=== PATIENT | female | born 1990 | race Caucasian/White ===

== ENCOUNTER 2018-12-06 17:40 | Emergency (ER) | payer MEDICAID ==
--- NOTE | 2018-12-06 18:31 | CT ---
Head CT Technique: Multiple axial sections through the brain were obtained. Intravenous contrast was not utilized. Artifact is noted from jewelry within the right ear. Findings: Ventricles along with basal cisterns and sulci over the convexities appear within normal limits. No abnormal parenchymal densities are identified. No evidence of intracranial hemorrhage. No midline shift or mass effect is seen. Bone window settings were reviewed which shows soft tissue injury and soft tissue air within the right parietal scalp. No acute calvarial abnormality is identified. Mild mucosal thickening and minimal fluid is seen within the sphenoid sinus. Minimal mucosal thickening is noted within the ethmoid sinuses. Impression: 1. Scalp injury as described above. 2. No acute intracranial abnormality or skull fracture is seen. Study is slightly limited due to jewelry within the right ear causing artifact. 3. Mild sinus findings which are most likely incidental. Diagnostic code #3
[2018-12-06] MEDS ORDERED: Ondansetron 4 MG/2 ML SDV ONE (19:02)
[2018-12-06] MEDS ORDERED: Ondansetron 4 MG/2 ML SDV IVPUSH ONE (19:06)
--- NOTE | 2018-12-06 19:16 | EDM.PDOC ---
ED HPI GENERAL MEDICAL PROBLEM - General Chief Complaint: Trauma Stated Complaint: [facility] Time Seen by Provider: 12/06/18 17:40 - History of Present Illness INITIAL COMMENTS - FREE TEXT/NARRATIVE: 28-year-old female brought in by EMS after a horse accident. Patient has no underlying past medical history. She is 15 weeks . be has been uncomplicated thus far. Patient was riding a horse. The horse was run into by a cow causing the horse to slip and fall on the ice along with the patient landed on her right side. She did strike her head and was immediately knocked out shortly after this she had some seizure-like activity where her eyes rolled back and she had involuntary movements of her upper extremities and to a lesser extent her right lower extremity this lasted several minutes the patient did not regain consciousness for 7 or more minutes. This was witnessed and described in detail by the patient's . Upon arrival to the emergency room the patient is alert and oriented and conversing well. She's able to provide an adequate history she has no memory of the time where she was knocked out. She denies any pain other than her head she is not having any cramping or contractions she has not noticed any movement yet with the . She denies any neck pain no chest pain no back pain no abdominal or pelvic discomfort she has not noticed any vaginal bleeding or discharge she has not had a tetanus shot in quite some time probably before high school. She is on no routine medications other than her vitamins. 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: - Past Surgical History Musculoskeletal Surgical History: Reports: Other (See Below) Other Musculoskeletal Surgeries/Procedures:: tib fib fracture of left leg Social & Family History - Tobacco Use Smoking Status *Q: Never Smoker Second Hand Smoke Exposure: No - Caffeine Use Caffeine Use: Reports: Coffee - Recreational Drug Use Recreational Drug Use: No Review of Systems - Review of Systems Review Of Systems: See Below Constitutional: Reports: No Symptoms Eyes: Reports: No Symptoms Ears: Reports: No Symptoms Nose: Reports: No Symptoms Mouth/Throat: Reports: No Symptoms Respiratory: Reports: No Symptoms Cardiovascular: Reports: No Symptoms GI/Abdominal: Reports: No Symptoms Genitourinary: Reports: No Symptoms. Denies: Vaginal Bleeding Musculoskeletal: Reports: Other (Right lower thigh pain) Skin: Reports: No Symptoms Neurological: Reports: Seizure, Other (See history of present illness) Psychiatric: Reports: No Symptoms ED EXAM, GENERAL - Physical Exam Exam: See Below Free Text/Narrative:: Patient was alert and oriented with she arrived to the emergency room she was well conversive. Patient came in with a c-collar on a denied neck pain she was not on a backboard. The patient was able to sit up without difficulty her back was examined no bony discomfort no soft tissue discomfort. Palpation in and around the c-collar revealed no discomfort the c-collar was removed. The patient demonstrated good motion of her neck with full extension flexion and turning to the right and left without causing discomfort the c-collar was left off. Exam Limited By: No Limitations General Appearance: Alert, No Apparent Distress Eye Exam: Bilateral Eye: EOMI, Normal Inspection, PERRL Ears: Normal External Exam, Normal Canal, Hearing Grossly Normal, Normal TMs Nose: Normal Inspection, Normal Mucosa, No Blood Throat/Mouth: Normal Inspection, Normal Lips, Normal Teeth, Normal Gums, Normal Oropharynx, Normal Voice, No Airway Compromise Head: Other (He has a laceration right occipital area proximally 5 cm) Neck: Normal Inspection, Supple, Non-Tender, Full Range of Motion. No: Lymphadenopathy (L), Lymphadenopathy (R) Respiratory/Chest: No Respiratory Distress, Lungs Clear, Normal Breath Sounds Cardiovascular: Regular Rate, Rhythm, No Edema, No Murmur GI/Abdominal: Normal Bowel Sounds, Soft, Non-Tender (Female) Exam: Normal External Exam, Other (Normal external a bimanual examination no evidence of any vaginal bleeding heart tones were audible with 160 bpm this was done with Doppler). No: Vaginal Bleeding Back Exam: Normal Inspection, Full Range of Motion. No: CVA Tenderness (L), CVA Tenderness (R) Extremities: Other (Normal extremity evaluation other than she is developing contusion and ecchymosis over the anterior right thigh distal aspect she was able to ambulate on this with minimal discomfort) Neurological: Alert, Oriented, CN II-XII Intact, Normal Cognition, Normal Gait, Normal Reflexes, No Motor/Sensory Deficits Psychiatric: Normal Affect, Normal Mood Skin Exam: Warm, Dry, Intact Lymphatic: No Adenopathy Course - Vital Signs Last Recorded V/S: Last Vital Signs Temp 36.9 C 12/06/18 17:47 Pulse 60 12/06/18 17:47 Resp 12 12/06/18 17:47 BP 116/72 12/06/18 17:47 Pulse Ox 100 12/06/18 17:47 - Orders/Labs/Meds Orders: Active Orders 24 hr Category Date Time Status Vaccines to be Administered [RC] PER UNIT ROUTINE Care 12/06/18 19:40 Active Labs: Laboratory Tests 12/06/18 12/06/18 12/06/18 Range/Units 17:45 17:45 17:45 WBC 13.15 H (3.98-10.04) K/mm3 RBC 3.78 L (3.98-5.22) M/mm3 Hgb 12.1 (11.2-15.7) gm/L Hct 35.4 (34.1-44.9) % MCV 93.7 (79.4-94.8) fl MCH 32.0 (25.6-32.2) pg MCHC 34.2 (32.2-35.5) g/dl RDW Std Deviation 43.1 (36.4-46.3) fL Plt Count 232 (182-369) K/mm3 MPV 9.1 L (9.4-12.3) fl Neutrophils % (Manual) 88 H (40-60) % Band Neutrophils % 0 (0-10) % Lymphocytes % (Manual) 8 L (20-40) % Atypical Lymphs % 0 % Monocytes % (Manual) 3 (2-10) % Eosinophils % (Manual) 1 (0.7-5.8) % Basophils % (Manual) 0 L (0.1-1.2) Toxic Granulation Few Platelet Estimate Adequate RBC Morph Comment Normal Sodium 136 (136-145) mEq/L Potassium 3.9 (3.5-5.1) mEq/L Chloride 102 (98-107) mEq/L Carbon Dioxide 24 (21-32) mEq/L Anion Gap 13.9 (5-15) BUN 10 (7-18) mg/dL Creatinine 0.7 (0.55-1.02) mg/dL Est Cr Clr Drug Dosing 121.78 mL/min Estimated GFR (MDRD) > 60 (>60) mL/min BUN/Creatinine Ratio 14.3 (14-18) Glucose 100 (74-106) mg/dL Calcium 8.7 (8.5-10.1) mg/dL Total Bilirubin 0.2 (0.2-1.0) mg/dL AST 22 (15-37) U/L ALT 24 (14-59) U/L Alkaline Phosphatase 38 L (46-116) U/L Total Protein 6.9 (6.4-8.2) g/dl Albumin 3.2 L (3.4-5.0) g/dl Globulin 3.7 gm/dL Albumin/Globulin Ratio 0.9 L (1-2) HCG, Quant 73353.0 mIU/mL Urine Color (Yellow) Urine Appearance (Clear) Urine pH (5.0-8.0) Ur Specific [place] (1.005-1.030) Urine Protein (Negative) Urine Glucose (UA) (Negative) Urine Ketones (Negative) Urine Occult Blood (Negative) Urine Nitrite (Negative) Urine Bilirubin (Negative) Urine Urobilinogen (0.2-1.0) Ur Leukocyte Esterase (Negative) Urine RBC (0-5) /hpf Urine WBC (0-5) /hpf Ur Epithelial Cells (0-5) /hpf Urine Bacteria (FEW) /hpf Urine Mucus (FEW) /hpf Blood Type O POSITIVE Gel Antibody Screen Negative 12/06/18 Range/Units 19:35 WBC (3.98-10.04) K/mm3 RBC (3.98-5.22) M/mm3 Hgb (11.2-15.7) gm/L Hct (34.1-44.9) % MCV (79.4-94.8) fl MCH (25.6-32.2) pg MCHC (32.2-35.5) g/dl RDW Std Deviation (36.4-46.3) fL Plt Count (182-369) K/mm3 MPV (9.4-12.3) fl Neutrophils % (Manual) (40-60) % Band Neutrophils % (0-10) % Lymphocytes % (Manual) (20-40) % Atypical Lymphs % % Monocytes % (Manual) (2-10) % Eosinophils % (Manual) (0.7-5.8) % Basophils % (Manual) (0.1-1.2) Toxic Granulation Platelet Estimate RBC Morph Comment Sodium (136-145) mEq/L Potassium (3.5-5.1) mEq/L Chloride (98-107) mEq/L Carbon Dioxide (21-32) mEq/L Anion Gap (5-15) BUN (7-18) mg/dL Creatinine (0.55-1.02) mg/dL Est Cr Clr Drug Dosing mL/min Estimated GFR (MDRD) (>60) mL/min BUN/Creatinine Ratio (14-18) Glucose (74-106) mg/dL Calcium (8.5-10.1) mg/dL Total Bilirubin (0.2-1.0) mg/dL AST (15-37) U/L ALT (14-59) U/L Alkaline Phosphatase (46-116) U/L Total Protein (6.4-8.2) g/dl Albumin (3.4-5.0) g/dl Globulin gm/dL Albumin/Globulin Ratio (1-2) HCG, Quant mIU/mL Urine Color Yellow (Yellow) Urine Appearance Clear (Clear) Urine pH 6.0 (5.0-8.0) Ur Specific [place] > or = 1.030 (1.005-1.030) Urine Protein 1+ H (Negative) Urine Glucose (UA) Negative (Negative) Urine Ketones Trace H (Negative) Urine Occult Blood Negative (Negative) Urine Nitrite Negative (Negative) Urine Bilirubin Negative (Negative) Urine Urobilinogen 0.2 (0.2-1.0) Ur Leukocyte Esterase Negative (Negative) Urine RBC 0-5 (0-5) /hpf Urine WBC 0-5 (0-5) /hpf Ur Epithelial Cells 0-5 (0-5) /hpf Urine Bacteria Few (FEW) /hpf Urine Mucus Moderate H (FEW) /hpf Blood Type Gel Antibody Screen Meds: Medications Discontinued Medications Generic Name Dose Route Start Last Admin Trade Name Freq PRN Reason Stop Dose Admin Diphtheria/Tetanus/Acell Pertussis 0.5 ml 12/06/18 19:40 Adacel IM 12/06/18 19:41 .ONCE ONE Lidocaine HCl 10 ml 12/06/18 19:37 Xylocaine 1% INJECT 03/07/19 19:38 ONETIME ONE Ondansetron HCl Confirm 12/06/18 19:02 12/06/18 19:07 Zofran Administered 12/06/18 19:03 Not Given Dose 4 mg .ROUTE .STK-MED ONE Ondansetron HCl 4 mg 12/06/18 19:06 12/06/18 19:06 Zofran IVPUSH 12/06/18 19:07 4 mg ONETIME ONE Administration - Re-Assessments/Exams Free Text/Narrative Re-Assessment/Exam: 12/06/18 19:[address] Max not much else we do from an OB standpoint she is O + no vaginal blood and contractions good heart tones. Case reviewed with Dr. Kilgore trauma surgeon environmental field office manager who recommends the patient be sent to [place] for observation tonight with her head injury. The patient's case was discussed with Dr. Villatoro the trauma surgeon on-call at [facility] in [place] who is willing to accept the patient in transfer. Her radiation exposure was minimized due to the however was determined that a head CT was absolutely essential given her status upon arrival in no history of neck chest abdomen or pelvic discomfort along with a normal exam further images were deferred. The risks and benefits of minimizing radiation was discussed with the patient and her spouse and they agreed. Departure - Departure Time of Disposition: 19:16 Disposition: DC/Tfer to [facility] 02 Clinical Impression: Closed head injury, Seizure after head injury, First trimester - Discharge Information Referrals: Holly Varner BEN DAY ARTIST [Primary Care Provider] - Forms: ED Department Discharge - My Orders Last 24 Hours: My Active Orders 12/06/18 19:40 Vaccines to be Administered [RC] PER UNIT ROUTINE - Assessment/Plan Last 24 Hours: My Active Orders 12/06/18 19:40 Vaccines to be Administered [RC] PER UNIT ROUTINE
[2018-12-06] MEDS ORDERED: Lidocaine 1% 10 ML MDV INJECT ONE (19:37)
[2018-12-06] MEDS ORDERED: Diphtheria,Pertussis(Acell),Tetanus Vaccine 0.5 ML Syringe IM ONE (19:40)
== END 2018-12-06 20:24 ==
LOC: JD.ED 17:40
DX: O9A.211 Injury, poisoning and certain other consequences of external causes complicating pregnancy, first trimester (principal); S01.01XA Laceration without foreign body of scalp, initial encounter; S09.90XA Unspecified injury of head, initial encounter; Z3A.15 15 weeks gestation of pregnancy; R56.9 Unspecified convulsions; Z79.899 Other long term (current) drug therapy; V80.919A Animal-rider injured in unspecified transport accident, initial encounter; Z23 Encounter for immunization
CPT/HCPCS: 12002; 36415; 70450; 80053; 81001; 84702; 85007; 85027; 86850; 86900; 86901; 90471; 90700; 96374; 99285; J2001; J2405

== ENCOUNTER 2019-06-02 17:29 | Inpatient (IN) | payer MEDICAID ==
[2019-06-02] MEDS ORDERED: Sodium Chloride 0.9% 10 ML Syringe FLUSH PRN (17:35)
[2019-06-02] MEDS ORDERED: Ondansetron 4 MG/2 ML SDV IVPUSH PRN (17:35)
[2019-06-02] MEDS ORDERED: Calcium Carbonate 500 MG Tab.Chew PO PRN (17:35)
[2019-06-02] MEDS ORDERED: Lactated Ringers 1,000 ML IV SCH (17:45)
[2019-06-02] MEDS ORDERED: Oxytocin/Lactated Ringers 10 UNIT/1,000 ML BAG IV SCH ×2 (17:45)
[2019-06-02] MEDS ORDERED: Ampicillin 2 GM in Sodium Chloride 0.9% 100 ML IV ONE (18:30)
--- NOTE | 2019-06-02 19:06 | PCM.LDHP ---
L&D History of Present Illness - General Date of Service: 06/02/19 Admit Problem/Dx: Patient Status Order with Admit Dx/Problem 06/02/19 17:36 Patient Status [ADT] Routine Admission Diagnosis/Problem Admission Diagnosis/Problem Source of Information: Patient History Limitations: Reports: No Limitations - History of Present Illness Introduction:: 29 year old at 40w3d here in labor. 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: - Past Surgical History Musculoskeletal Surgical History: Reports: Other (See Below) Other Musculoskeletal Surgeries/Procedures:: tib fib fracture of left leg Social & Family History - Family History Family Medical History: Noncontributory - Tobacco Use Smoking Status *Q: Never Smoker Second Hand Smoke Exposure: No - Caffeine Use Caffeine Use: Reports: Coffee - Recreational Drug Use Recreational Drug Use: No H&P Review of Systems - Review of Systems: Review Of Systems: See Below General: Reports: No Symptoms HEENT: Reports: No Symptoms Pulmonary: Reports: No Symptoms Cardiovascular: Reports: No Symptoms Gastrointestinal: Reports: No Symptoms Genitourinary: Reports: No Symptoms Musculoskeletal: Reports: No Symptoms Skin: Reports: No Symptoms Psychiatric: Reports: No Symptoms Neurological: Reports: No Symptoms Hematologic/Lymphatic: Reports: No Symptoms Immunologic: Reports: No Symptoms L&D Exam - Exam Exam: See Below - Vital Signs Vital Signs: Last Vital Signs Temp 36.6 C 06/02/19 18:37 Pulse 67 06/02/19 18:37 Resp 14 06/02/19 18:37 BP 127/79 06/02/19 18:37 Pulse Ox 100 06/02/19 18:37 Weight: 80.15 kg - OB Specific Contraction Intensity: Moderate to Strong Movement: Active Heart Tones: Present Heart Rate (FHR) Variability: Moderate (6-25 bmp) Presentation: Vertex - Diaz Score Diaz Score Cervix Position: Midposition Diaz Score Consistency: Medium Diaz Score Effacement: 51-70% Diaz Score Dilation: 3-4 cm Diaz Score Infant's Station: -2 Diaz Score Total: 7 - Exam General: Alert, Oriented HEENT: PERRLA, Conjunctiva Clear, EACs Clear, EOMI, Hearing Intact, Mucosa Moist & [place], Nares Patent, Normal Nasal Septum, Posterior Pharynx Clear, TMs Clear Neck: Supple, Trachea Midline Lungs: Clear to Auscultation, Normal Respiratory Effort Cardiovascular: Regular Rate, Regular Rhythm GI/Abdominal Exam: Normal Bowel Sounds, Soft, Non-Tender, No Organomegaly, No Distention, No Abnormal Bruit, No Mass, Pelvis Stable Back Exam: Normal Inspection, Full Range of Motion Extremities: Normal Inspection, Normal Range of Motion, Non-Tender, No Pedal Edema, Normal Capillary Refill Skin: Warm, Dry, Intact Neurological: Cranial Nerves Intact, Reflexes Equal Bilateral Psychiatric: Alert, Normal Affect, Normal Mood - Patient Data Lab Results Last 24 hrs: Laboratory Results - last 24 hr 06/02/19 Range/Units 18:00 WBC 12.89 H (3.98-10.04) K/mm3 RBC 4.09 (3.98-5.22) M/mm3 Hgb 12.1 (11.2-15.7) gm/L Hct 36.0 (34.1-44.9) % MCV 88.0 D (79.4-94.8) fl MCH 29.6 (25.6-32.2) pg MCHC 33.6 (32.2-35.5) g/dl RDW Std Deviation 42.9 (36.4-46.3) fL Plt Count 271 (182-369) K/mm3 MPV 9.2 L (9.4-12.3) fl Neut % (Auto) 74.0 H (34.0-71.1) % Lymph % (Auto) 16.1 L (19.3-51.7) % [place] % (Auto) 8.6 (4.7-12.5) % Eos % (Auto) 0.6 L (0.7-5.8) Baso % (Auto) 0.2 (0.1-1.2) % Neut # (Auto) 9.55 H (1.56-6.13) K/mm3 Lymph # (Auto) 2.07 (1.18-3.74) K/mm3 [place] # (Auto) 1.11 H (0.24-0.36) K/mm3 Eos # (Auto) 0.08 (0.04-0.36) K/mm3 Baso # (Auto) 0.02 (0.01-0.08) K/mm3 Manual Slide Review Not Reportable Result Diagrams: 06/02/19 18:00 Problem List Initiated/Reviewed/Updated: Yes Orders Last 24hrs: Active Orders 24 hr Category Date Time Status Patient Status [ADT] Routine ADT 06/02/19 17:36 Active Activity as Tolerated [RC] PFP Care 06/02/19 17:35 Active Communication Order [RC] ASDIRECTED Care 06/02/19 17:35 Active Heart Tones [RC] ASDIRECTED Care 06/02/19 17:36 Active Non Stress Test [RC] PER UNIT ROUTINE Care 06/02/19 17:35 Active Notify Provider [RC] PFP Care 06/02/19 17:35 Active Notify Provider [RC] PRN Care 06/02/19 17:35 Active Peripheral IV Care [RC] . DIRECTED Care 06/02/19 17:36 Active Vital Signs [RC] PER UNIT ROUTINE Care 06/02/19 17:35 Active Regular Diet [DIET] Diet 06/03/19 Breakfast Active RAPID PLASMA REAGIN,RPR [CHEM] Routine Lab 06/02/19 18:00 Received Ampicillin 1 gm Med 06/02/19 22:30 Active Sodium Chloride 0.9% [Normal Saline] 100 ml IV Q4H Calcium Carbonate [Tums] Med 06/02/19 17:35 Active 1,000 mg PO Q2H PRN Lactated Ringers [Ringers, Lactated] 1,000 ml Med 06/02/19 17:45 Active IV ASDIRECTED Nalbuphine [Nubain] Med 06/02/19 17:35 Active 10 mg IVPUSH Q2H PRN Ondansetron [Zofran] Med 06/02/19 17:35 Active 4 mg IVPUSH Q4H PRN Oxytocin/Lactated Ringers [Pitocin in LR 10 Units/1,000 Med 06/02/19 17:45 Active ML] 10 unit in 1,000 ml IV .CONTINUOUS Oxytocin/Lactated Ringers [Pitocin in LR 10 Units/1,000 Med 06/02/19 17:45 Active ML] 10 unit in 1,000 ml IV TITRATE Sodium Chloride 0.9% [Saline Flush] Med 06/02/19 17:35 Active 10 ml FLUSH ASDIRECTED PRN Electronic Heart Tones Ext w TOCO [WOMSER] Oth 06/02/19 17:35 Ordered Routine Electronic Heart Tones Internal [WOMSER] Per Unit Ot 06/02/19 17:35 Ordered Routine Peripheral IV Insertion Adult [OM.PC] Routine Oth 06/02/19 17:35 Ordered Resuscitation Status Routine Resus Stat 06/02/19 17:35 Ordered Medication Orders Calcium Carbonate/Glycine (Tums) 1,000 mg PO Q2H PRN PRN Reason: Indigestion Ampicillin Sodium 1 gm/ Sodium (Chloride) 100 mls @ 200 mls/hr IV Q4H MING Lactated Ringer's (Ringers, Lactated) 1,000 mls @ 100 mls/hr IV ASDIRECTED MING Oxytocin/Lactated Ringer's (Pitocin In Lr 10 Units/1,000 Ml) 10 unit in 1,000 mls @ 12 mls/hr IV TITRATE MING; Protocol Oxytocin/Lactated Ringer's (Pitocin In Lr 10 Units/1,000 Ml) 10 unit in 1,000 mls @ 500 mls/hr IV .CONTINUOUS MING Nalbuphine HCl (Nubain) 10 mg IVPUSH Q2H PRN PRN Reason: Pain Ondansetron HCl (Zofran) 4 mg IVPUSH Q4H PRN PRN Reason: Nausea/Vomiting Sodium Chloride (Saline Flush) 10 ml FLUSH ASDIRECTED PRN PRN Reason: Keep Vein Open Assessment/Plan Comment:: Term labor. AROM clear fluid. GBS positive - ampicillin Anticipate unless otherwise indicated.
[2019-06-02] MEDS: Ranitidine 15 MG/ML Syrup 10 ML UD Cup PO SCH (20:19)
[2019-06-02] MEDS: Ampicillin 1 GM in Sodium Chloride 0.9% 100 ML IV SCH (22:04)
[2019-06-03] MEDS ORDERED: Ranitidine 15 MG/ML Syrup 10 ML UD Cup PO PRN (01:45)
[2019-06-03] MEDS: Ampicillin 1 GM in Sodium Chloride 0.9% 100 ML IV SCH ×2 (01:54→06:03)
[2019-06-03] MEDS: Ranitidine 15 MG/ML Syrup 10 ML UD Cup PO SCH (02:16)
[2019-06-03] MEDS: Nalbuphine 10 MG/1 ML Vial IVPUSH PRN ×2 (02:55→05:10)
[2019-06-03] MEDS ORDERED: fentaNYL 100 MCG/2 ML SDV IVPUSH ONE (06:52)
--- NOTE | 2019-06-03 07:05 | PCM.SN ---
- Free Text/Narrative Note: Stage I - Patient presented in active labor. AROM augmentation and eventual pitocin. Progressed to complete with overall reassuring FHT. STage II - of viable female, weight 7#1oz, 6/9 APGARS AT 0625. Head delivered in controlled manner over intact perineum, body and shoulders followed without difficulty. Nuchal cord. Baby to maternal abdomen. Cord clamped and cut at 2 minutes. Stage III - of intact placenta, 3vc, no laceration. EBL 100.
[2019-06-03] MEDS ORDERED: Ibuprofen 600 MG Tab PO PRN (07:22)
[2019-06-03] MEDS ORDERED: Witch Hazel Medicated Pads 40/Jar TOP PRN (07:22)
[2019-06-03] MEDS ORDERED: Calcium Carbonate 500 MG Tab.Chew PO PRN (09:12)
--- NOTE | 2019-06-04 15:53 | PCM.DCSUM1 ---
Discharge Summary - Hospital Course Diagnosis: Stroke: No - Discharge Data Discharge Date: 06/04/19 Discharge Disposition: Home, Self-Care 01 Condition: Good - Patient Instructions Diet: Usual Diet as Tolerated Activity: No Strenuous Activities Activity, Other: pelvic rest Driving: May Drive Today Notify Provider of: Fever, Increased Pain, Swelling and Redness, Drainage, Nausea and/or Vomiting - Discharge Plan *PRESCRIPTION DRUG MONITORING PROGRAM REVIEWED*: No *COPY OF PRESCRIPTION DRUG MONITORING REPORT IN PATIENT TANNER: No Home Medications: Home Meds Pnv No.95/Ferrous Fum/Folic AC [ Caplet] 1 tab PO DAILY 12/06/18 [ History] Ranitidine HCl [Zantac 75] 75 mg PO DAILY PRN 06/01/19 [History] Referrals: Jose Max MD [Primary Care Provider] - (2 weeks) - Discharge Summary/Plan Comment DC Time >30 min.: No - General Info Date of Service: 06/04/19 Functional Status: Reports: Pain Controlled - Review of Systems General: Reports: No Symptoms HEENT: Reports: No Symptoms Pulmonary: Reports: No Symptoms Cardiovascular: Reports: No Symptoms Gastrointestinal: Reports: No Symptoms Genitourinary: Reports: No Symptoms Musculoskeletal: Reports: No Symptoms Skin: Reports: No Symptoms Neurological: Reports: No Symptoms Psychiatric: Reports: No Symptoms - Patient Data Vitals - Most Recent: Last Vital Signs Temp 36.2 C 06/04/19 09:09 Pulse 78 06/04/19 09:09 Resp 16 06/04/19 09:09 BP 107/59 L 06/04/19 10:28 Pulse Ox 96 06/04/19 09:09 Weight - Most Recent: 80.15 kg I&O - Last 24 hours: Intake & Output 06/04/19 06/04/19 06/04/19 06:59 14:59 22:59 Intake Total 120 Balance 120 Lab Results - Last 24 hrs: Laboratory Results - last 24 hr 06/02/19 Range/Units 18:00 RPR Non-reactive (NONREACTIVE) Med Orders - Current: Current Medications Calcium Carbonate/Glycine (Tums) 1,000 mg PO Q2HR PRN PRN Reason: Indigestion Last Admin: 06/03/19 09:43 Dose: 1,000 mg Ibuprofen (Motrin) 600 mg PO Q6H PRN PRN Reason: Mild pain or fever [place]ilda (Tucks) 1 pad TOP ASDIRECTED PRN PRN Reason: Pain Discontinued Medications Calcium Carbonate/Glycine (Tums) 1,000 mg PO Q2H PRN PRN Reason: Indigestion Last Admin: 06/02/19 19:51 Dose: 1,000 mg Fentanyl (Sublimaze) 50 mcg IVPUSH ONETIME ONE Stop: 06/03/19 06:53 Last Admin: 06/03/19 06:54 Dose: 50 mcg Ampicillin Sodium 2 gm/ Sodium (Chloride) 100 mls @ 200 mls/hr IV ONETIME ONE Stop: 06/02/19 18:59 Last Admin: 06/02/19 18:13 Dose: 200 mls/hr Ampicillin Sodium 1 gm/ Sodium (Chloride) 100 mls @ 200 mls/hr IV Q4H MING Last Admin: 06/03/19 06:03 Dose: 200 mls/hr Lactated Ringer's (Ringers, Lactated) 1,000 mls @ 100 mls/hr IV ASDIRECTED MING Last Admin: 06/03/19 02:48 Dose: 100 mls/hr Oxytocin/Lactated Ringer's (Pitocin In Lr 10 Units/1,000 Ml) 10 unit in 1,000 mls @ 12 mls/hr IV TITRATE MING; Protocol Last Titration: 06/03/19 06:25 Dose: 500 mls/hr Oxytocin/Lactated Ringer's (Pitocin In Lr 10 Units/1,000 Ml) 10 unit in 1,000 mls @ 500 mls/hr IV .CONTINUOUS MING Nalbuphine HCl (Nubain) 10 mg IVPUSH Q2H PRN PRN Reason: Pain Last Admin: 06/03/19 05:10 Dose: 5 mg Ondansetron HCl (Zofran) 4 mg IVPUSH Q4H PRN PRN Reason: Nausea/Vomiting Last Admin: 06/02/19 21:34 Dose: 4 mg Ranitidine HCl (Zantac) 150 mg PO BID MING Last Admin: 06/03/19 02:16 Dose: Not Given Ranitidine HCl (Zantac) 150 mg PO BID PRN PRN Reason: Heartburn Sodium Chloride (Saline Flush) 10 ml FLUSH ASDIRECTED PRN PRN Reason: Keep Vein Open - Exam General: Reports: Alert, Oriented HEENT: Reports: Pupils Equal, Pupils Reactive, EOMI, Mucous Membr. Moist/[place] Neck: Reports: Supple Lungs: Reports: Clear to Auscultation, Normal Respiratory Effort Cardiovascular: Reports: Regular Rate, Regular Rhythm GI/Abdominal Exam: Normal Bowel Sounds, Soft, Non-Tender, No Organomegaly, No Distention, No Abnormal Bruit, No Mass, Pelvis Stable Rectal (Female) Exam: Normal Exam, Normal Rectal Tone Back Exam: Reports: Normal Inspection, Full Range of Motion Extremities: Normal Inspection, Normal Range of Motion, Non-Tender, No Pedal Edema, Normal Capillary Refill Neurological: Reports: No New Focal Deficit Psy/Mental Status: Reports: Alert, Normal Affect, Normal Mood
== END 2019-06-04 16:20 | disposition home or self-care (01) | DRG 807 ==
LOC: JD.OBCHECK 17:29 → JD.OB 17:29 → JD.OBCHECK 17:36 → OBSVTOIN 06-03 06:25 → JD.OB 06-03 06:26
PROVIDERS: ADMIT Obstetrics & Gynecology; ATTEND Obstetrics & Gynecology
PROC: 10E0XZZ Delivery of Products of Conception, External Approach (ICD-10-PCS; principal; 2019-06-03)
PROC: 10907ZC Drainage of Amniotic Fluid, Therapeutic from Products of Conception, Via Natural or Artificial Opening (ICD-10-PCS; 2019-06-03)
DX: O48.0 Post-term pregnancy (principal); O99.824 Streptococcus B carrier state complicating childbirth; O69.81X0 Labor and delivery complicated by cord around neck, without compression, not applicable or unspecified; Z3A.40 40 weeks gestation of pregnancy; Z37.0 Single live birth
CPT/HCPCS: 36415; 59025; 59409; 85025; 86592; A9270-GY; J0290; J2300; J2405; J2590; J3010; J7030; J7120

== ENCOUNTER 2023-06-27 05:23 | Inpatient (IN) | payer MEDICAID ==
[~2023-06-27 05:23] MED LIST: Citric Acid/Sodium Citrate Solution 30 ML Cup PO ONE; Lactated Ringers 1,000 ML IV SCH; Metoclopramide 10 MG/2 ML SDV IVPUSH ONE; ceFAZolin 2 GM in Sodium Chloride 0.9% 50 ML IV ONE
[2023-06-27] MEDS ORDERED: Lactated Ringers 1,000 ML IV SCH (05:30)
[2023-06-27] MEDS ORDERED: Oxytocin/Lactated Ringers 10 UNIT/1,000 ML BAG IV SCH (05:30)
[2023-06-27 05:47] LABS: BASOPHILS ABSOLUTE AUTO 0.1 K/mm3 (0.0-0.2); BASOPHILS PERCENT AUTO 0.5 % (0.0-1.0); EOSINOPHILS ABSOLUTE AUTO 0.2 K/mm3 (0.0-0.4); EOSINOPHILS PERCENT AUTO 1.6 % (0.0-6.0); HEMATOCRIT 35.9 % (37.0-47.0); HEMOGLOBIN 11.9 gm/dl (12.0-16.0); IMMATURE GRAN ABSOLUTE AUTO 0.66 K/mm3 (0.00-0.05); IMMATURE GRAN PERCENT AUTO 5.7 % (0.0-0.4); LYMPHOCYTES ABSOLUTE AUTO 2.3 K/mm3 (1.0-4.8); LYMPHOCYTES PERCENT AUTO 19.7 % (24.0-44.0); MEAN CORPUSCULAR HEMOGLOBIN 31.2 pg (28.0-32.0); MEAN CORPUSCULAR HGB CONC 33.1 g/dl (32.0-36.0); MEAN PLATELET VOLUME 9.2 fl (9.4-12.3); MONOCYTES ABSOLUTE AUTO 1.2 K/mm3 (0.0-0.8); MONOCYTES PERCENT AUTO 10.3 % (0.0-8.0); NEUTROPHILS ABSOLUTE AUTO 7.3 K/mm3 (1.8-7.7); NEUTROPHILS PERCENT AUTO 62.2 % (41.0-71.0); PLATELET COUNT,PLT 271 K/mm3 (150-400); RED BLOOD CELL COUNT 3.82 M/mm3 (4.10-5.30); WHITE BLOOD CELL COUNT,WBC 11.66 K/mm3 (3.9-11.3)
[2023-06-27] MEDS ORDERED: Sodium Chloride 0.9% 10 ML Syringe FLUSH PRN (06:00)
[2023-06-27 07:37] LABS: SLIDE REVIEW ABNORMAL SMEAR
[2023-06-27] MEDS ORDERED: Morphine PF 10 MG/10 ML SDV ONE (07:38)
[2023-06-27] MEDS ORDERED: ePHEDrine 50 MG/ML SDV ONE ×2 (07:47→08:16)
[2023-06-27] MEDS ORDERED: Oxytocin 10 Units/1 ML SDV ONE (07:48)
[2023-06-27] MEDS ORDERED: ceFAZolin 2 GM Vial ONE (07:56)
[2023-06-27] MEDS ORDERED: Lidocaine 1% 30 ML SDV ONE (07:59)
[2023-06-27] MEDS ORDERED: Ketorolac 30 MG/ML SDV ONE (08:05)
[2023-06-27] MEDS ORDERED: Dexamethasone 4 MG/ML SDV ONE (08:06)
[2023-06-27] MEDS ORDERED: Ondansetron 4 MG/2 ML SDV ONE (08:11)
[2023-06-27] MEDS ORDERED: Phenylephrine 1% 10 MG/ML SDV ONE (08:14)
[2023-06-27] MEDS ORDERED: Bupivacaine 0.5% 30 ML SDV ONE (08:37)
[2023-06-27] MEDS ORDERED: Dexmedetomidine 200 MCG/2 ML SDV ONE (08:38)
[2023-06-27] MEDS ORDERED: Sodium Chloride 0.9% 10 ML Syringe FLUSH SCH (09:00)
[2023-06-27] MEDS ORDERED: Docusate Sodium 100 MG Cap PO PRN (09:21)
[2023-06-27] MEDS ORDERED: diphenhydrAMINE 50 MG/ML SDV IVPUSH PRN (09:21)
[2023-06-27] MEDS ORDERED: Dextrose 5%-Lactated Ringers 1,000 ML IV SCH (09:21)
[2023-06-27] MEDS ORDERED: ePHEDrine 50 MG/ML SDV IVPUSH PRN (09:21)
[2023-06-27] MEDS ORDERED: Acetaminophen/oxyCODONE 325-5 MG Tab PO PRN ×2 (09:21)
[2023-06-27] MEDS ORDERED: Lactated Ringers 1,000 ML IV ONE (10:49)
[2023-06-27] MEDS ORDERED: Tranexamic Acid 1,000 MG/10 ML Vial IV ONE (12:10)
[2023-06-27] MEDS ORDERED: Misoprostol 200 MCG Tab BUCCAL ONE (12:10)
[2023-06-27] MEDS ORDERED: Methylergonovine 0.2 MG/1 ML Amp IM ONE (12:10)
[2023-06-27] MEDS ORDERED: Tranexamic Acid 1,000 MG/10 ML Vial ONE (12:37)
[2023-06-27] MEDS ORDERED: Carboprost Tromethamine 250 MCG/1 mL Vial IM ONE (13:00)
[2023-06-27] MEDS ORDERED: ceFAZolin 2 GM in Sodium Chloride 0.9% 50 ML IV ONE (13:00)
[2023-06-27] MEDS ORDERED: Promethazine 25 MG Supp RECTAL PRN (13:11)
[2023-06-27 13:26] LABS: HEMATOCRIT 31.8 % (37.0-47.0); HEMOGLOBIN 10.5 gm/dl (12.0-16.0); MEAN CORPUSCULAR HEMOGLOBIN 30.8 pg (28.0-32.0); MEAN CORPUSCULAR VOLUME 93.3 fl (83.0-99.0); MEAN PLATELET VOLUME 9.4 fl (9.4-12.3); PLATELET COUNT,PLT 207 K/mm3 (150-400); RED BLOOD CELL COUNT 3.41 M/mm3 (4.10-5.30); WHITE BLOOD CELL COUNT,WBC 23.63 K/mm3 (3.9-11.3)
[2023-06-27 14:06] LABS: INR 1.17; PROTHROMBIN TIME 12.4 SECONDS (9.7-12.0)
[2023-06-27 14:08] LABS: PTT,PARTIAL THROMBOPLSTIN TIME 31.6 SECONDS (21.7-31.4)
[2023-06-27] MEDS: Ketorolac 30 MG/ML SDV IVPUSH SCH ×2 (16:05→21:59)
[2023-06-27] MEDS: Methylergonovine 0.2 MG/1 ML Amp IM SCH ×2 (16:06→20:20)
[2023-06-28] MEDS: Ketorolac 30 MG/ML SDV IVPUSH SCH (04:03)
[2023-06-28 04:39] LABS: HEMATOCRIT 22.7 % (37.0-47.0); MEAN CORPUSCULAR HEMOGLOBIN 31.3 pg (28.0-32.0); MEAN CORPUSCULAR HGB CONC 33.5 g/dl (32.0-36.0); MEAN CORPUSCULAR VOLUME 93.4 fl (83.0-99.0); MEAN PLATELET VOLUME 9.5 fl (9.4-12.3); PLATELET COUNT,PLT 137 K/mm3 (150-400); RED BLOOD CELL COUNT 2.43 M/mm3 (4.10-5.30); WHITE BLOOD CELL COUNT,WBC 13.81 K/mm3 (3.9-11.3)
[2023-06-28 04:41] LABS: HEMOGLOBIN 7.6 gm/dl (12.0-16.0)
[2023-06-28] MEDS ORDERED: Sodium Chloride 0.9% 500 ML IV SCH (06:00)
[2023-06-28] MEDS ORDERED: Ibuprofen 600 MG Tab PO PRN (09:00)
[2023-06-29 05:41] LABS: HEMATOCRIT 25.4 % (37.0-47.0); HEMOGLOBIN 8.6 gm/dl (12.0-16.0); MEAN CORPUSCULAR HEMOGLOBIN 30.3 pg (28.0-32.0); MEAN CORPUSCULAR HGB CONC 33.9 g/dl (32.0-36.0); MEAN CORPUSCULAR VOLUME 89.4 fl (83.0-99.0); MEAN PLATELET VOLUME 9.7 fl (9.4-12.3); NRBC ABSOLUTE 0.02 (0.00-0.02); NRBC PERCENT 0.2 % (0.0-0.2); PLATELET COUNT,PLT 160 K/mm3 (150-400); RED BLOOD CELL COUNT 2.84 M/mm3 (4.10-5.30); WHITE BLOOD CELL COUNT,WBC 12.77 K/mm3 (3.9-11.3)
[2023-06-29] MEDS ORDERED: Sodium Chloride 0.9% 500 ML IV ONE (09:41)
[2023-06-30] MEDS ORDERED: diphenhydrAMINE 25 MG Cap PO ONE (06:57)
== END 2023-06-30 10:30 | disposition home or self-care (01) | DRG 787 ==
LOC: JD.OB 05:23
PROVIDERS: ADMIT Obstetrics & Gynecology; ATTEND Obstetrics & Gynecology
PROC: 10D00Z1 Extraction of Products of Conception, Low, Open Approach (ICD-10-PCS; principal; 2023-06-27)
PROC: 30233N1 Transfusion of Nonautologous Red Blood Cells into Peripheral Vein, Percutaneous Approach (ICD-10-PCS; 2023-06-27)
PROC: 3E0DXGC Introduction of Other Therapeutic Substance into Mouth and Pharynx, External Approach (ICD-10-PCS; 2023-06-27)
PROC: 3E033VJ Introduction of Other Hormone into Peripheral Vein, Percutaneous Approach (ICD-10-PCS; 2023-06-27)
DX: O69.4XX0 Labor and delivery complicated by vasa previa, not applicable or unspecified (principal); D62 Acute posthemorrhagic anemia; O72.1 Other immediate postpartum hemorrhage; O90.81 Anemia of the puerperium; Z37.0 Single live birth; Z3A.36 36 weeks gestation of pregnancy
CPT/HCPCS: 36415; 36430; 59025; 85025; 85027; 85384; 85610; 85730; 86592; 86850; 86900; 86901; 86922; A9270-GY; J0690; J1100; J1885; J2210; J2274; J2371; J2405; J2590; J2765; J3490; J7030; J7120; P9016

== ENCOUNTER 2024-07-16 01:38 | Inpatient (IN) | payer MEDICAID ==
[2024-07-16 05:56] LABS: BASOPHILS PERCENT AUTO 0.3 % (0.0-1.0); EOSINOPHILS ABSOLUTE AUTO 0.2 K/mm3 (0.0-0.4); EOSINOPHILS PERCENT AUTO 1.6 % (0.0-6.0); HEMOGLOBIN 11.2 gm/dl (12.0-16.0); IMMATURE GRAN ABSOLUTE AUTO 0.16 K/mm3 (0.00-0.05); IMMATURE GRAN PERCENT AUTO 1.6 % (0.0-0.4); LYMPHOCYTES ABSOLUTE AUTO 1.9 K/mm3 (1.0-4.8); LYMPHOCYTES PERCENT AUTO 19.1 % (24.0-44.0); MEAN CORPUSCULAR HGB CONC 33.9 g/dl (32.0-36.0); MEAN CORPUSCULAR VOLUME 91.4 fl (83.0-99.0); MEAN PLATELET VOLUME 9.3 fl (9.4-12.3); MONOCYTES ABSOLUTE AUTO 0.7 K/mm3 (0.0-0.8); MONOCYTES PERCENT AUTO 7.2 % (0.0-8.0); NEUTROPHILS ABSOLUTE AUTO 7.1 K/mm3 (1.8-7.7); NEUTROPHILS PERCENT AUTO 70.2 % (41.0-71.0); PLATELET COUNT,PLT 238 K/mm3 (150-400); RED BLOOD CELL COUNT 3.61 M/mm3 (4.10-5.30); WHITE BLOOD CELL COUNT,WBC 10.13 K/mm3 (3.9-11.3)
[2024-07-16] MEDS: Lactated Ringers 1,000 ML IV SCH (06:12)
[2024-07-16] MEDS ORDERED: Lidocaine 1% 50 ML MDV INJECT PRN (06:27)
[2024-07-16] MEDS: Oxytocin/0.9 % Sodium Chloride 30 UNIT/500 ML BAG IV SCH (07:33)
[2024-07-16] MEDS: Terbutaline 1 MG/ML SDV SUBCUT ONE (07:44)
[2024-07-16] MEDS: ceFAZolin 2 GM in Sodium Chloride 0.9% 50 ML IV ONE (07:44)
[2024-07-16] MEDS: Citric Acid/Sodium Citrate Solution 30 ML Cup PO ONE (07:45)
[2024-07-16] MEDS: Metoclopramide 10 MG/2 ML SDV IVPUSH ONE (07:45)
[2024-07-16] MEDS: Ondansetron 4 MG/2 ML SDV IVPUSH PRN (18:06)
[2024-07-16] MEDS: Metoclopramide 10 MG/2 ML SDV IVPUSH PRN (23:06)
[2024-07-17] MEDS: Nalbuphine 10 MG/1 ML Vial IVPUSH PRN (00:30)
[2024-07-17] MEDS: Oxytocin/0.9 % Sodium Chloride 30 UNIT/500 ML BAG IV SCH (01:48)
[2024-07-17] MEDS: Methylergonovine 0.2 MG/1 ML Amp IM PRN (01:54)
[2024-07-17] MEDS ORDERED: Misoprostol 200 MCG Tab PO PRN (02:03)
[2024-07-17] MEDS ORDERED: Acetaminophen 325 MG Tab PO PRN (03:39)
[2024-07-17] MEDS ORDERED: Docusate Sodium 100 MG Cap PO PRN (03:39)
[2024-07-17] MEDS: Benzocaine/Menthol 20%-0.5% Spray 78 GM Cannister TOP PRN (04:09)
[2024-07-17] MEDS: Witch Hazel Medicated Pads 40/Jar TOP PRN (04:09)
[2024-07-17] MEDS: Ibuprofen 600 MG Tab PO SCH (04:15)
[2024-07-17] MEDS: ceFAZolin 2 GM in Sodium Chloride 0.9% 50 ML IV ONE (05:24)
[2024-07-17] MEDS: Citric Acid/Sodium Citrate Solution 30 ML Cup PO ONE (05:25)
[2024-07-17] MEDS: diphenhydrAMINE 50 MG/ML SDV IVPUSH PRN (07:44)
[2024-07-17] MEDS: diphenhydrAMINE 25 MG Cap PO PRN (21:30)
== END 2024-07-18 10:17 | disposition home or self-care (01) | DRG 807 ==
LOC: JD.OB 01:38 → INTOOBSV 05:09 → JD.OB 05:30 → OBSVTOIN 07-17 01:38 → JD.OB 07-17 01:39
PROVIDERS: ADMIT Obstetrics & Gynecology; ATTEND Obstetrics & Gynecology
PROC: 10E0XZZ Delivery of Products of Conception, External Approach (ICD-10-PCS; principal; 2024-07-17)
PROC: 10907ZC Drainage of Amniotic Fluid, Therapeutic from Products of Conception, Via Natural or Artificial Opening (ICD-10-PCS; 2024-07-17)
PROC: 3E033VJ Introduction of Other Hormone into Peripheral Vein, Percutaneous Approach (ICD-10-PCS; 2024-07-17)
PROC: 0U7C7ZZ Dilation of Cervix, Via Natural or Artificial Opening (ICD-10-PCS; 2024-07-17)
PROC: 3E0P7VZ Introduction of Hormone into Female Reproductive, Via Natural or Artificial Opening (ICD-10-PCS; 2024-07-17)
DX: O34.219 Maternal care for unspecified type scar from previous cesarean delivery (principal); Z37.0 Single live birth; O35.8XX0 Maternal care for other (suspected) fetal abnormality and damage, not applicable or unspecified; Z3A.37 37 weeks gestation of pregnancy; Z98.890 Other specified postprocedural states
CPT/HCPCS: 36415; 59025; 59409; 85025; 86592; 86850; 86900; 86901; A9270-GY; J1200; J2210; J2300; J2405; J2765; J7120; J7999